=== PATIENT | female | born 1980 | race African-American/Black ===

== ENCOUNTER 2016-10-31 00:45 | Emergency (ER) | payer MEDICAID ==
[~2016-10-31] VITALS: Ht 165.1 cm; Wt 64.0 kg
[2016-10-31] MEDS ORDERED: CYCLOBENZAPRINE 10MG TABLET PO ONE (02:00)
[2016-10-31] MEDS ORDERED: IBUPROFEN 600MG TABLET PO ONE (02:00)
[2016-10-31 02:30] VITALS: BP 130/85
== END 2016-10-31 02:30 | disposition home or self-care (01) ==
LOC: ER 01:15
DX: M89.011 Algoneurodystrophy, right shoulder (principal); F17.200 Nicotine dependence, unspecified, uncomplicated
CPT/HCPCS: 73030; 99284

== ENCOUNTER 2017-02-08 18:36 | Emergency (ER) | payer MEDICAID ==
[~2017-02-08] VITALS: Ht 165.1 cm; Wt 61.0 kg
[2017-02-08 21:45] VITALS: BP 118/82
[2017-02-08 22:50] LABS: BASOPHILS % 0.4 % (0.0-2.0); EOSINOPHILS % 4.8 % (0.0-5.0); HEMOGLOBIN. 11.6 g/dL (12.0-16.0); LYMPHOCYTES % 48.7 % (20.0-50.0); MEAN CORPUSCULAR HEMOGLOBIN 29.2 pg (28.0-32.0); MEAN CORPUSCULAR VOLUME 87.9 fL (81.0-99.0); MEAN PLATELET VOLUME 7.2 fl (7.4-10.4); MONOCYTES % 8.1 % (2.0-8.0); PLATELET 295 x1000/uL (130-400); RED BLOOD CELL COUNT 3.98 mill/uL (4.2-5.4); RED CELL DISTRIBUTION WIDTH 14.3 % (11.6-14.6)
[2017-02-08 23:01] LABS: CLARITY URINE CLEAR (CLEAR); COLOR URINE YELLOW (YELLOW); KETONES URINE NEGATIVE (NEGATIVE); LEUKOCYTE ESTERASE URINE NEGATIVE (NEGATIVE); NITRITE URINE NEGATIVE (NEGATIVE); OCCULT BLOOD URINE 2+ (NEGATIVE); PROTEIN URINE NEGATIVE (NEGATIVE); SPECIFIC GRAVITY URINE 1.028 (1.005-1.030); UROBILINOGEN URINE 0.2 E.U./dL (0.2-1.0)
[2017-02-08 23:04] LABS: CARBON DIOXIDE 27 mEq/L (21-32); CHLORIDE 107 mEq/L (98-107)
== END 2017-02-09 00:28 | disposition home or self-care (01) ==
LOC: ER 22:10
DX: K52.9 Noninfective gastroenteritis and colitis, unspecified (principal); E86.0 Dehydration
CPT/HCPCS: 36415; 80053; 81001; 81025; 85025; 93005; 99285; Z7610